=== PATIENT | male | born 1940 | race Caucasian/White ===

== ENCOUNTER 2024-05-30 15:36 | Outpatient (CLI) | payer MEDICARE, BC, SELFPAY ==
[2024-05-30 15:57] LABS: Bilirubin Urine Negative (Negative); Blood Urine Negative (Negative); Glucose Urine UA 3+ (Normal); Ketones Urine Trace (Negative); Leukocyte Esterase Urine Trace (Negative); Nitrate Urine Positive (Negative); Protein Urine Negative (Negative); Specific Gravity, Urine 1.027 (1.005-1.030); Urine Appearance Cloudy (CLEAR); Urine Color Yellow (Yellow)
[2024-05-30 16:02] LABS: Add Urine Microscopic? YES; Bacteria Urine 4+ /hpf
[2024-05-30 16:18] LABS: Add Urine Culture? No; UA Slide Review UA Slide Review Perf
== END 2024-05-30 15:37 | disposition home or self-care (01) ==
PROVIDERS: Visit Provider Nurse Practitioner Family
DX: R31.0 Gross hematuria (principal)
CPT/HCPCS: 81001

== ENCOUNTER 2025-04-01 15:52 | Outpatient (CLI) | payer MEDICARE, BC, SELFPAY ==
[2025-04-01 16:36] LABS: Glucose Urine UA 2+ (Normal); Nitrate Urine Negative (Negative); Specific Gravity, Urine 1.022 (1.005-1.030)
[2025-04-01 16:43] LABS: Add Urine Microscopic? YES
[2025-04-01 17:18] LABS: UA Slide Review UA Slide Review Perf
== END 2025-04-01 15:53 | disposition home or self-care (01) ==
PROVIDERS: Visit Provider Nurse Practitioner Family
DX: R82.90 Unspecified abnormal findings in urine (principal)
CPT/HCPCS: 81001; 87086

== ENCOUNTER 2025-05-23 17:08 | Outpatient (CLI) | payer MEDICARE, BC, SELFPAY ==
[2025-05-23 17:21] LABS: Glucose Urine UA 2+ (Normal); Nitrate Urine Negative (Negative); Specific Gravity, Urine 1.020 (1.005-1.030)
[2025-05-23 17:26] LABS: Add Urine Microscopic? YES
[2025-05-23 18:06] LABS: UA Manual Slide Review YES; UA Slide Review UA Slide Review Perf
== END 2025-05-23 17:09 | disposition home or self-care (01) ==
LOC: LAB 17:09
PROVIDERS: Visit Provider Nurse Practitioner Family
DX: N11.9 Chronic tubulo-interstitial nephritis, unspecified (principal); R82.90 Unspecified abnormal findings in urine
CPT/HCPCS: 81001; 87077; 87086; 87186

== ENCOUNTER 2025-06-11 10:33 | Outpatient (CLI) | payer MEDICARE, BC, SELFPAY ==
[2025-06-11 10:57] LABS: Glucose Urine UA 3+ (Normal); Nitrate Urine Positive (Negative); Specific Gravity, Urine 1.024 (1.005-1.030)
[2025-06-11 11:23] LABS: Add Urine Microscopic? YES
== END 2025-06-11 10:34 | disposition home or self-care (01) ==
LOC: LAB 10:39
PROVIDERS: PCP Nurse Practitioner Family; Visit Provider Nurse Practitioner Family
DX: R82.90 Unspecified abnormal findings in urine (principal)
CPT/HCPCS: 81001; 87086

== ENCOUNTER 2025-07-18 16:21 | Outpatient (CLI) | payer MEDICARE, BC, SELFPAY ==
[2025-07-18 16:46] LABS: Glucose Urine UA 3+ (Normal); Nitrate Urine Positive (Negative); Specific Gravity, Urine 1.027 (1.005-1.030)
[2025-07-18 16:49] LABS: Add Urine Microscopic? YES
== END 2025-07-18 16:22 | disposition home or self-care (01) ==
LOC: LAB 16:24
PROVIDERS: PCP Nurse Practitioner Family; Visit Provider Nurse Practitioner Family
DX: R82.90 Unspecified abnormal findings in urine (principal); R82.998 Other abnormal findings in urine
CPT/HCPCS: 81001; 87077; 87086; 87186